=== PATIENT | female | born 2000 | race Two or more races ===

== ENCOUNTER 2025-01-11 20:04 | Inpatient (IN) | payer MEDICAID, SELFPAY ==
[2025-01-11] VITALS (59 sets, daily range): BP systolic 119–151; BP diastolic 79–96; PULSE 83–127; RESP 16–99; TEMP 37.1; O2SAT 91–100; BMI 35.0
--- NOTE | 2025-01-11 20:41 | XR_ITS ---
Examination: Complete OB ultrasound greater than 14 weeks Date and time of exam: January 11, 2025, 2045 hrs. Indications: Labor evaluation, unknown presentation Findings: Viable intrauterine single fetus with single amniotic sac presentation cephalic Cardiac motion 135 BPM Placenta anterior grade 2 Amniotic fluid index 10.5 cm Cervix 4.0 cm Ovaries obscured by the fetus. Composite estimated gestational age based on BPD, head circumference, abdominal circumference, femur length is 39 weeks 0 days Estimated weight 3662.4 g. Survey of intracranial anatomy, spinal anatomy, abdominal anatomy, four-chamber heart performed with no abnormalities identified. Impression: Viable intrauterine gestation cephalic presentation.
[2025-01-11] MEDS: RINGERS LACTATED 1000 ML 1,000 ML 125 ML IV ×2 (21:35→22:37)
[2025-01-11 21:42] LABS: Basophils # (Auto) 0.0 Thou/mm3 (0.0-0.2); Basophils % (Auto) 0 % (0-2.5); Eosinophils # (Auto) 0.1 Thou/mm3 (0.0-0.5); Eosinophils % (Auto) 1 % (0-10); Hematocrit 32.7 % (36.0-46.0); Hemoglobin 10.6 g/dL (12.0-16.0); Immature Granulocytes Auto 0.05 Thou/mm3 (0.00-0.00); Lymphocytes # (Auto) 2.2 Thou/mm3 (1.0-4.8); Lymphocytes % (Auto) 23 % (10-50); Mean Corpuscular HGB Conc 32.4 g/dl (31.0-37.0); Mean Corpuscular Hemoglobin 26.2 pg (25.0-35.0); Mean Corpuscular Volume 81 fL (80-100); Monocytes # (Auto) 0.7 Thou/mm3 (0.0-0.8); Monocytes % (Auto) 7 % (0-12); Neutrophils # (Auto) 6.5 Thou/mm3 (1.8-7.7); Neutrophils % (Auto) 68 % (37-80); Nucleated Red Blood Cell # 0.00 Thou/mm3 (0.00-0.00); Nucleated Red Blood Cell % 0 /100 WBC (0); Platelet Count 337 Thou/mm3 (140-440); RDW Standard Deviation 43.4 fL (36.4-46.3); Red Blood Count 4.05 Miln/mm3 (4.00-5.20); White Blood Count 9.5 Thou/mm3 (3.6-11.0)
[2025-01-11 21:46] LABS: Amphetamine/Metham Scrn,Ur OB Negative (Negative); Benzoylecgonine Screen, Ur OB Negative (Negative); Opiate Screen,Urine OB Negative (Negative); THC Screen,Urine OB Negative (Negative)
[2025-01-11 22:19] LABS: HIV (1&2) Antibody Rapid Non-Reactive
[2025-01-11] MEDS: Ampicillin Inj 2,000 MG in SODIUM CHLORIDE 0.9% (POP) 100 ML 200 MG IV (22:37)
[2025-01-11 22:50] LABS: Syphilis Nonreactive (Nonreactive)
[2025-01-12] VITALS (74 sets, daily range): BP systolic 108–153; BP diastolic 62–97; PULSE 66–124; RESP 16–20; TEMP 36.7–37.1; O2SAT 93–100
--- NOTE | 2025-01-12 00:58 | PRELIM_ITS ---
Obstetric ultrasound. January 11, 2025 at 2046 hours Clinical history: ROM, unable to determine presentation. Labor and Delivery. Findings: There is a gravid uterus with a live fetus in cephalic presentation of mean gestational age 39 weeks and 0 day. cardiac activity is present at a heart rate of 135 beats per minute. The placenta is anterior in location, maturity grade II. Amniotic fluid index is 10.5 cm. Estimated weight is 3662.4 grams+/- 542 grams. The cervical length measures 4 cm. The ovaries are not visualized. Impression: Gravid uterus with a single live fetus in cephalic presentation of mean gestational age 39 weeks 0 day. Report Electronically Signed By: Monty Moy 01/12/2025 12:57:55 AM [EST]
[2025-01-12] MEDS: RINGERS LACTATED 1000 ML 1,000 ML 125 ML IV (01:28)
[2025-01-12] MEDS: Ampicillin Inj 1,000 MG in SODIUM CHLORIDE 0.9% (Popper) 50 ML 50 MG IV (01:34)
--- NOTE | 2025-01-12 04:29 | PD.LDDELS ---
Data ([facility]) Data Hx Section: No Maternal Blood Type: A Pos Rubella Titre: Negative RPR: Non-reactive Labs: Negative: RPR, Hepatitis B and HIV and Unknown: Chlamydia, Gonorrhea, Herpes Type 1, Herpes Type 2 and Group Beta Strep : 2 Term: 1 : 0 Livin Abortions: Spontaneous & Theraputic: 0 Delivery Data ([facility]epeda) Labor Data Initiation of labor: Spontaneous Induction/Augmentation Agent: None ROM date: 01/11/25 ROM time: 19:15 Amniotic membrane rupture type: Spontaneous Amniotic fluid description: Clear Delivery Data EDC: 01/18/25 EDC calculated by:: LMP (No records available on presentation) Date of arrival to unit: 01/11/25 Time of arrival to unit: 21:00 Onset of labor date: 01/11/25 Onset of labor time: 23:00 Complete dilation date: 01/12/25 Complete dilation time: 03:28 [place] delivery date: 01/12/25 delivery time: 03:48 Gestational age (weeks): 39 Gestational age (days): 1 Placenta delivery date: 01/12/25 Placenta delivery time: 03:55 Stage 1 total time: Labor - Stage 1 Duration 4 hours and 28 minutes Delivered by: [facility] ([facility]) Delivery nurse: kriss Acosta nurse: antonio banks rn .Net Programmer at delivery: No Support person(s) at delivery: father of baby Other staff at delivery: dany green rnc Delivery Method Delivery method: Normal Vaginal Delivery Presentation: Vertex position: OA Anesthesia Type Anesthesia Type: Epidural Delivery Room Medications Delivery room medications: Pitocin 20 u IV Placenta Placenta delivery description: Spontaneous Cord blood sent to lab: Yes cord blood collection: Cord Blood Type Episiotomy Episiotomy description: None Lacerations #1: Perineal: 1st degree Perineal repair Sutures used for repair: 4.0 Chromic EBL Estimated blood loss (ml): 150 Umbilical Cord cord description: 3 Vessels Additional Procedures The patient is a 24-year-old -0-0-1 at 391/7 weeks who presented to triage reporting ruptured membranes at 1915 on 01/11/2025. care is up-to-date with Dr. Peter. Unfortunately no records were available on admission. Her labs were were able to be obtained but some were missing including her group B strep status. She was admitted and given ampicillin for unknown group B strep. She was 4 cm dilated on presentation. She had labor epidural placed. She went on to progressed to complete without the aid of Pitocin by 0328 on 01/12/2025. Patient was set up for delivery and pushed through 1 contraction delivering a liveborn female at 0348. Findings: liveborn female in the SHERI presentation with no nuchal cord and no meconium. The baby did have a short cord. Apgars were 9 and 9 ,weight was 8 pounds 2 ounces or 3685 g. The baby was vigorous at and placed immediately on mom's chest. Delayed cord clamping was performed for approximately 2 minutes. The cord was clamped and cut, cord blood was collected ,Cord gases were saved. The placenta was then complete, spontaneous and grossly normal delivering approximately 5 to 7 minutes after the baby delivered. Patient sustained a small first-degree perineal laceration repaired in a standard fashion using 4-0 chromic. Complications were none. Condition both mom and were in stable condition in the delivery room. Complications Complications: None [place] Data ([facility]epeda) Data order: 1 's gender: Female weight (gms): 3685 g Weight (pounds): 8 lbs and 2.0 ozs length: 49.53 cm 1 minute: 9 5 minutes: 9 10 minutes: 9
--- NOTE | 2025-01-12 04:42 | ESHP_ITS ---
Documentation for date of: 01/11/25 OB Labor/Induct. HPI History of Present Illness Chief complaint: Ruptured membranes : 2 Para: 1 Term pregnancies: 1 pregnancies: 0 Living children: 1 History of Abortions: Spontaneous and Elective: 0 History of Vaginal deliveries: 1 History of sections: No History of : No Date of last menstrual period: 04/12/24 GORDY: 01/18/25 Gestational Age (weeks): 39 Gestational Age (days): 1 Gestational age based on last menstrual period: 39 History of present illness: The patient is a 24-year-old -0-0-1 with all care uncomplicated per patient with Dr. Peter. No records were available in presentation. labs were able to be obtained and patient is a positive rubella nonimmune she has an unknown group B strep status and unknown gonorrhea chlamydia. All other labs are normal. She presented with rupture membranes at 191401/11/2025. Patient was 4 cm dilated on presentation. She stated she has been 4 cm in the office. EDC 01/18/2025. History of Present Dating criteria: other (Dating based on patient's LMP and history. No records available on presentation.) Adequate Care: Yes Ultrasounds: other (No records available on presentation) Obstetrical complications: none Medical complications: none Labs Maternal Blood Type: A Pos Labs: Negative: RPR, Hepatitis B, Rubella Titre (Rubella nonimmune) and HIV and Unknown: Chlamydia, Gonorrhea, Herpes Type 1, Herpes Type 2, Group Beta Strep and Covid-19 Review of Systems Review of Systems Narrative Review of Systems: Patient is reporting mild contractions on presentation no heavy bleeding she reported rupture of clear fluid at 191401/11/2025 Past Medical History Surgical History SURGICAL: Negative Section Past Medical History Comments PMH COMMENT: Patient denies significant past medical history. She states she had an uncomplicated vaginal delivery of a 7 pound at 38 weeks approximately 18 months prior to presentation. Meds Home Medications and Allergies Home Medications ?Medication ?Instructions ?Recorded ?Confirmed ?Type No Known Home Medications 01/11/2512/24 History Allergies Allergy/AdvReac Type Severity Reaction Status Date / Time No Known Allergies Allergy Verified 01/11/25 20:14 OB Exam Physical Exam Vital signs: Temp Pulse Resp BP Pulse Ox 98.8 F 83 16 147/92 H 99 01/11/25 20:22 01/12/25 03:59 01/11/25 21:30 01/12/25 03:59 01/12/25 03:52 Routine Abdominal Exam Abdominal: Present soft Detailed Labor and Delivery Exam Dilation (cm): 4 Effacement (%): 80 Cervix position: mid station: -2 Consistency: medium Presentation: Vertex Membranes: ruptured Amniotic fluid: clear Baseline heart rate: 150 monitor accelerations: 15x15 monitor decelerations: None field service engineer variability: Moderate (11-25) Contraction frequency (min): Every 3 minutes Contraction intensity: Moderate OB Results Labs 01/11/25 20:55 Labs: Short CBC 01/11/25 Range/Units 20:55 WBC 9.5 (3.6-11.0) Thou/mm3 Hgb 10.6 L (12.0-16.0) g/dL Hct 32.7 L (36.0-46.0) % Plt Count 337 (140-440) Thou/mm3 OB Assessment & Plan Assessment and Plan (1) Supervision of high risk in third trimester: Status: Acute Additional Plan Induction method: none Plan: anticipate NVD and GBS prophylaxis tx Additional Plan Comment: Ampicillin for unknown group B strep. Augment labor if needed.
[2025-01-12] MEDS: OXYTOCIN in NS 20 units 20 UNIT/1,000 ML BAG 125 UNIT IV (04:58)
[2025-01-12] MEDS: IBUPROFEN TAB 400 MG TABLET 800 MG PO (06:14)
[2025-01-12 08:31] LABS: Chlamydia trachomatis PCR Negative (Not Detect); Neisseria Gonorrhoeae DNA PCR Negative (Not Detect); Trichomonas Negative (Negative)
[2025-01-12] MEDS: DOCUSATE SOD 100 MG CAPSULE PO (08:56)
[2025-01-12 11:07] LABS: Basophils # (Auto) 0.1 Thou/mm3 (0.0-0.2); Basophils % (Auto) 0 % (0-2.5); Eosinophils # (Auto) 0.0 Thou/mm3 (0.0-0.5); Eosinophils % (Auto) 0 % (0-10); Hematocrit 31.5 % (36.0-46.0); Hemoglobin 9.8 g/dL (12.0-16.0); Immature Granulocytes Auto 0.07 Thou/mm3 (0.00-0.00); Lymphocytes # (Auto) 2.0 Thou/mm3 (1.0-4.8); Lymphocytes % (Auto) 14 % (10-50); Mean Corpuscular HGB Conc 31.1 g/dl (31.0-37.0); Mean Corpuscular Hemoglobin 25.4 pg (25.0-35.0); Mean Corpuscular Volume 82 fL (80-100); Monocytes # (Auto) 1.1 Thou/mm3 (0.0-0.8); Monocytes % (Auto) 7 % (0-12); Neutrophils # (Auto) 11.0 Thou/mm3 (1.8-7.7); Neutrophils % (Auto) 78 % (37-80); Nucleated Red Blood Cell # 0.00 Thou/mm3 (0.00-0.00); Nucleated Red Blood Cell % 0 /100 WBC (0); Platelet Count 283 Thou/mm3 (140-440); RDW Standard Deviation 44.2 fL (36.4-46.3); Red Blood Count 3.86 Miln/mm3 (4.00-5.20); White Blood Count 14.2 Thou/mm3 (3.6-11.0)
[2025-01-13] MEDS: DOCUSATE SOD 100 MG CAPSULE PO ×2 (00:08→08:24)
[2025-01-13 00:10] VITALS: BP 124/78; PULSE 68; RESP 16; TEMP 36.7; O2SAT 97
[2025-01-13 04:35] VITALS: BP 111/74; PULSE 69; RESP 16; TEMP 36.7; O2SAT 97
[2025-01-13 08:00] VITALS: BP 110/75; PULSE 70; RESP 16; TEMP 36.4; O2SAT 98
--- NOTE | 2025-01-13 08:07 | ESPR_ITS ---
Subjective Subjective Interval history: Patient is a 24-year-old -0-0-2 day #1 status post vaginal delivery. She delivered around 4 in the morning 01/12/2025. She is doing well. She is voiding, ambulating, tolerating a general diet and passing flatus. Patient is breast and bottlefeeding. She would like to go home. Exam Vital Signs Temp Pulse Resp BP Pulse Ox O2 Del Method 98.0 F 69 16 111/74 97 Room Air 01/13/25 04:35 01/13/25 04:35 01/13/25 04:35 01/13/25 04:35 01/13/25 04:35 01/13/25 04:35 Narrative Exam Fundus firm, nontender. Extremities show no significant edema or erythema. Objective Labs 01/12/25 10:35 Labs: Laboratory Results - last 24 hr 01/11/25 01/12/25 21:17 10:35 WBC 14.2 H D RBC 3.86 L Hgb 9.8 L Hct 31.5 L MCV 82 MCH 25.4 MCHC 31.1 RDW Std Deviation 44.2 Plt Count 283 D Neut % (Auto) 78 Lymph % (Auto) 14 [place] % (Auto) 7 Eos % (Auto) 0 Baso % (Auto) 0 Neut # (Auto) 11.0 H Lymph # (Auto) 2.0 [place] # (Auto) 1.1 H Eos # (Auto) 0.0 Baso # (Auto) 0.1 Immature Gran # (Auto) 0.07 H Absolute Nucleated RBC 0.00 Immature Gran % 1 H Nucleated RBC % 0 Chlam trachomat DNA PCR Negative N.gonorrhoeae DNA (PCR) Negative Trichomonas DNA Probe Negative Assessment & Plan Problem List (1) care following vaginal delivery: Status: Acute Assessment and plan: Discharge post day #1 in stable condition. Discharge instructions given including pelvic rest x 6 weeks. Time Spent With Patient Time: Total time spent is greater than 50% in coordination of care (as documented) at patient's floor/unit and/or counseling patient: Time with patient: less than 15 minutes
--- NOTE | 2025-01-13 08:10 | ESDS_ITS ---
DS: Providers Provider Date of admission: 01/11/25 22:02 Primary care physician: Luiz Olivares MD Admitting Provider: M[facility] ([facility]) Attending Provider on Admission: Masha Gupta MD ([facility]) Consults: 01/12/25 04:49 Referral Routine Comment: Attending Provider on DC: Masha Gupta MD ([facility]) Discharging Provider: Masha Gupta MD ([facility]) Anticipated date of discharge: 01/13/25 DS: Diagnosis Discharge Diagnosis (1) care following vaginal delivery: Status: Acute Assessment & Plan: Discharge instructions given. Follow-up with Dr. Peter in 4 to 6 weeks. Problem List Completed Was Problem List Reviewed/Reconciled?: Yes Summary/Hosp Course Brief History: The patient is a 24-year-old -0-0-1 with all care uncomplicated per patient with Dr. Peter. No records were available in present ation. labs were able to be obtained and patient is a positive rubella nonimmune she has an unknown group B strep status and unknown gonorrhea chlamydia. All other labs are normal. She presented with rupture membranes at 1915 01/11/2025. Patient was 4 cm dilated on presentation. She stated she has been 4 cm in the office. EDC 01/18/2025. Please see history and physical for further details. Hospital course: Patient was admitted and underwent a vaginal delivery around 4:00 in the morning 01/12/2025. Please see delivery notes for further details. Patient had an uncomplicated post course and was discharged home day #1 in stable condition. Peripartum Data Delivery Method: Normal Vaginal Delivery Episiotomy Description: None complications: none Status at Discharge Functional status at discharge: independent ambulation Overall status at discharge: patient is progressing back to baseline Time Spent with Patient Time attestation: Total time spent providing and/or coordinating discharge services: Time spent: Less than 30 minutes Specific discharge activities: Pelvic rest x 6 weeks Exam Vital Signs Temp Pulse Resp BP Pulse Ox O2 Del Method 98.0 F 69 16 111/74 97 Room Air 01/13/25 04:35 01/13/25 04:35 01/13/25 04:35 01/13/25 04:35 01/13/25 04:35 01/13/25 04:35 Narrative Exam Fundus firm nontender extremities show no edema or erythema. Discharge Plan Plan Patient Disposition: HOME (Self Care) Patient condition on transfer: Stable Prescriptions/Referrals Prescriptions/Med Rec: New acetaminophen 325 mg Tablet 650 mg PO Q4H PRN (Reason: See Comments) Qty: 60 0RF ibuprofen 400 mg Tablet 800 mg PO Q8H PRN (Reason: See Comments) Qty: 60 0RF docusate sodium 100 mg Capsule 100 mg PO BID Qty: 60 0RF Referrals: Luiz Olivares MD [Primary Care Provider, Family Practice] Patient/Caregiver Discharge Instructions Discharge Activity: activity as tolerated Other Discharge Activity Instructions:: Pelvic rest x 6 weeks Other Discharge Diet Instructions: General diet as tolerated Education Materials: After a Vaginal , After Delivery [place] Concerns, Anemia During Print Language: Tunisian Activity Restrictions/Additional Instructions: Call for heavy bleeding, fevers or severe depression. Follow-up with Dr. Peter in 4 weeks. Sooner if there are any complications. Call for an appointment. Stand Alone Forms: [facility] Award Info., Patient Portal Info Letter Discharge Order Discharge Orders: Discharge (Routine); Ordered 01/13/25 Ordered By: Masha Gupta ([facility]) Planned Discharge Date 01/13/25
[2025-01-13 08:20] VITALS: BP 110/75; PULSE 70; RESP 16; TEMP 36.6; O2SAT 98
--- NOTE | 2025-01-13 09:05 | PC.NURSE ---
Ok to discharge per Vitor in director social
--- NOTE | 2025-01-13 16:53 | PC.SS ---
DIRECTOR DESIGN conducted bedside contact with the patient to address nursing referral indicating patient was late to care.? DIRECTOR DESIGN introduced self and role.? At bedside with patient was Braydon TSAI.? Patient gave permission for FOB to be present during discussion.? DIRECTOR DESIGN reviewed basis of referral.? Patient confirmed late to care due to the patient not being able to access providers at [facility] prior to 12 week timeframe.? Patient stated ability to obtain OB services at [facility] with Dr. Peter.? Following initial OB appointment patient consistent with follow up appointments.? , Osiel; is the patient?s second child.? Other child is 2 a year old son.? Infant delivered naturally.? Patient plans on combo feeding .? Patient is aligned with WIC.? Patient is not receiving SNAP or TANF. ?Patient denies history of alcohol/drug abuse.? Patient denies CWS intervention.? Patient denies episodes of domestic violence.? Patient denies possessing a history of mental health, reports no current possession of depression or anxiety.? Patient has access to appropriate supplies and equipment; to include a car seat.? FOB will provide transportation upon discharge.? Patient describes possessing support system consisting of parents and extended family.? DIRECTOR DESIGN provided the patient with community resources to include Parenting Network and Warm Line.? No further intervention required at this time, social service assistant will be available to address any further concerns.? DIRECTOR DESIGN updated bedside nurse.?
== END 2025-01-13 11:24 | disposition home or self-care (01) | DRG 560 ==
LOC: S4SX 01-12 04:12 → S4NX 01-12 06:00
PROVIDERS: Admitting Provider Obstetrics & Gynecology; PCP Family Medicine; Visit Provider Obstetrics & Gynecology
DX: O42.02 Full-term premature rupture of membranes, onset of labor within 24 hours of rupture (principal); O69.3XX0 Labor and delivery complicated by short cord, not applicable or unspecified; O70.0 First degree perineal laceration during delivery; Z37.0 Single live birth
CPT/HCPCS: 36415; 59025; 59409; 76805; 80307; 85025; 86703; 86780; 86850; 86900; 86901; 87491; 87591; 87661; 94762; J0290; J2590; J2795; J3010; J7050; J7120; A9270